=== PATIENT | male | born 1960 | race Caucasian/White ===

== ENCOUNTER → 2020-10-16 | Outpatient (CLI) | payer OTHER ==
--- NOTE | 2020-10-16 15:02 | RAD ---
EXAM: Right second finger, 3 views. HISTORY: Cat bite. COMPARISON: None. FINDINGS: 3 views of the right second finger are obtained. There is no fracture, dislocation or sublu xation. No radiodense foreign body is seen. There is lucency along the ulnar aspect of the scaphoid w hich is likely projectional rather than due to a cyst. There is a chronic healed fifth metacarpal fra cture. IMPRESSION: No acute osseous finding or radiodense foreign body. Electronically signed by: Myrna Anderson MD (10/16/2020 3:00 PM) [facility]
== END ==
LOC: RAD 14:38
PROVIDERS: ATTEND Nurse Practitioner Family
DX: M79.644 Pain in right finger(s) (principal)
CPT/HCPCS: 73140